=== PATIENT | female | born 1995 | race Caucasian/White ===

== ENCOUNTER 2022-05-19 09:53 | Outpatient (CLI) | payer BC, SELFPAY ==
[2022-05-19 13:56] LABS: Albumin* 4.6 g/dL (3.3-5.0); Chloride* 104 mmol/L (96-114)
[2022-05-19 13:57] LABS: Potassium* 4.2 mmol/L (3.6-5.1); Sodium* 138 mmol/L (135-149)
[2022-05-19 13:59] LABS: Aspartate Amino Transferase* 24 U/L (12-35); Bilirubin Total* 0.5 mg/dL (0.1-1.5); Carbon Dioxide* 29 mmol/L (20-32); Creatinine* 0.6 mg/dL (0.5-1.5); Estimated Glomerular Filt Rate 128 ml/min
[2022-05-19 14:00] LABS: Alanine Aminotransferase* 26 U/L (4-35); Alkaline Phosphatase* 54 U/L (40-150); Blood Urea Nitrogen* 10 mg/dL (5-24); Calcium* 9.8 mg/dL (8.4-10.6); Glucose* 87 mg/dL (60-115); Total Protein* 7.5 g/dL (6.0-8.3)
[2022-05-19 14:11] LABS: Vitamin D 25 Hydroxy* 34 ng/mL (30-80)
== END 2022-05-19 09:54 | disposition home or self-care (01) ==
PROVIDERS: Visit Provider Physician Assistant
DX: R53.83 Other fatigue (principal); N92.0 Excessive and frequent menstruation with regular cycle
CPT/HCPCS: 80053; 82306; 84443